=== PATIENT | female | born 1980 | race Caucasian/White ===

== ENCOUNTER → 2022-06-13 | Outpatient (CLI) | payer OTHER ==
[2022-06-15 12:07] LABS: HPV 16 Negative (Negative); HPV 18 Negative (Negative); HPV OTHER HR TYPES Negative (Negative)
== END ==
LOC: LAB SHORT 15:30 → LAB 15:30
PROVIDERS: Family Medicine
DX: Z01.419 Encounter for gynecological examination (general) (routine) without abnormal findings (principal)
CPT/HCPCS: 87624; G0123

== ENCOUNTER → 2024-05-19 | Outpatient (CLI) | payer OTHER | END | disposition home or self-care (01) | LOC: LAB 14:52 → LAB SHORT 14:52 | DX: L72.3 Sebaceous cyst (principal); L08.9 Local infection of the skin and subcutaneous tissue, unspecified | CPT/HCPCS: 87070; 87075; 87076; 87205 ==

== ENCOUNTER → 2024-05-20 | Outpatient (CLI) | payer OTHER | LOC: LAB 11:28 → LAB SHORT 11:28 | DX: L02.91 Cutaneous abscess, unspecified (principal) | CPT/HCPCS: 87070; 87075; 87076; 87205 ==

== ENCOUNTER 2025-06-22 11:15 | Day surgery (SDC) | payer OTHER ==
[~2025-06-22] VITALS: Ht 167.6 cm; Wt 110.5 kg
[~2025-06-22 11:15] MED LIST: Lidocaine HCl 2% 10 ML SDA ONE
[2025-06-22] MEDS ORDERED: CeFAZolin Sodium 2,000 MG VIAL ONE (11:52)
[2025-06-22] MEDS ORDERED: HYDROCODONE-AC1 EA19 PO (12:22)
[2025-06-22] MEDS ORDERED: IBUP600 (12:23)
[2025-06-22] MEDS ORDERED: Midazolam HCl 1MG / ML 2ML Vial ONE (13:27)
[2025-06-22] MEDS ORDERED: Sugammadex Sodium 200 MG/2ML SDV (100 MG/ML) ONE (13:43)
[2025-06-22] MEDS ORDERED: FentaNYL Citrate 50 MCG/ML 2 ML Injection ONE (14:19)
--- NOTE | 2025-06-22 14:41 | NUR ---
06/22/25 1448 Ana Cano PT. VERBALIZES PAIN NOW A "4" AFTER 2 DIVIDED DOSES OF 25MCG IV FENTANYL. PT. VERBALIZES FEELING TIGHT & HOT. PT. VERBALIZES HAVING A SORE THROAT BUT BETTER AFTER DRINKING FLUIDS.
[2025-06-22 15:16] VITALS: BP 122/89
[2025-06-22] MEDS ORDERED: Ondansetron HCl 2 MG / ML 2ML Vial IV ONE (19:40)
[2025-06-22] MEDS ORDERED: Rocuronium Bromide 10 MG/ML 5ML Injection IV ONE (19:40)
[2025-06-22] MEDS ORDERED: Metoclopramide HCl 5MG / ML 2ML Vial IV ONE (19:40)
== END 2025-06-22 15:10 | disposition home or self-care (01) ==
LOC: ORSCSDS 11:15
PROVIDERS: Orthopaedic Surgery
PROC: 0PSV34Z Reposition Left Finger Phalanx with Internal Fixation Device, Percutaneous Approach (ICD-10-PCS; principal; 2025-06-22 14:00)
DX: S62.617A Displaced fracture of proximal phalanx of left little finger, initial encounter for closed fracture (principal); E66.9 Obesity, unspecified; Z68.39 Body mass index [BMI] 39.0-39.9, adult; F17.210 Nicotine dependence, cigarettes, uncomplicated
CPT/HCPCS: C1889; J0690; J2003; J2250; J2405; J2704; J2765; J3010; J7120